=== PATIENT | male | born 1945 | race Caucasian/White ===

== ENCOUNTER → 2024-03-20 13:42 | Observation (INO) ==
[2024-03-19 11:07] LABS: Basophils #(Absolute) Auto 0.1 (0.0-0.1); Basophils%(Percent) Auto 0.4 (0.0-1.3); Eosinophils#(Absolute)Auto 0.1 (0.0-0.3); Eosinophils%(Percent) Auto 0.7 % (0.0-4.0); Granulocytes % - Auto 78.1 % (49.1-73.1); Granulocytes#(Absolute)- Auto 11.2 (2.0-6.2); Hematocrit 50.7 % (41.3-50.1); Mean Corpuscular Volume 88.8 fl (81.9-96.5); Monocytes #(Absolute)- Auto 1.4 (0.2-0.8); Monocytes %(Percent)- Auto 9.5 % (4.5-10.7); Platelet Count 289 K/uL (142-355); White Blood Count 14.3 K/uL (3.7-9.6)
[2024-03-19 11:17] LABS: Potassium 5.4 mmol/L (3.6-5.2)
[2024-03-19] MEDS: 0.9 % SODIUM CHLORIDE 500 ML IV ONE (14:30)
[2024-03-19 14:47] LABS: Urine Appearance HAZY (CLEAR); Urine Blood NEGATIVE (NEG - TRACE); Urine Color YELLOW (STRAW/YELL.); Urine Urobilinogen Normal (NORMAL)
[2024-03-19] MEDS: ALBUTEROL SULFATE 2.5 MG/3 ML VIAL.NEB INH SCH (15:40)
[2024-03-19] MEDS: 0.9 % SODIUM CHLORIDE 1000 ML 1,000 ML IV SCH (16:30)
[2024-03-19] MEDS: ATORVASTATIN CALCIUM 40 MG TABLET PO SCH (16:54)
[2024-03-19] MEDS: CLOPIDOGREL BISULFATE 75 MG TABLET PO SCH (16:54)
[2024-03-19] MEDS: WARFARIN SODIUM 1 MG TABLET PO SCH (16:55)
[2024-03-19] MEDS: GABAPENTIN 600 MG PO SCH (16:55)
[2024-03-19] MEDS: METOPROLOL SUCCINATE 25 MG TAB.ER.24H PO SCH (16:55)
[2024-03-19] MEDS: PANTOPRAZOLE SODIUM 40 MG TABLET.DR PO SCH (21:41)
[2024-03-19] MEDS: DOCUSATE SODIUM 100 MG CAPSULE PO SCH (21:41)
[2024-03-19] MEDS: SODIUM CHLORIDE 1,000 MG TABLET PO SCH (21:41)
[2024-03-19] MEDS: GABAPENTIN 300 MG CAPSULE PO SCH (22:31)
[2024-03-20 05:53] LABS: Basophils #(Absolute) Auto 0.1 (0.0-0.1); Basophils%(Percent) Auto 0.4 (0.0-1.3); Eosinophils#(Absolute)Auto 0.1 (0.0-0.3); Granulocytes % - Auto 74.8 % (49.1-73.1); Granulocytes#(Absolute)- Auto 9.2 (2.0-6.2); Hematocrit 45.4 % (41.3-50.1); Mean Corpuscular Volume 89.8 fl (81.9-96.5); Monocytes #(Absolute)- Auto 1.1 (0.2-0.8); Monocytes %(Percent)- Auto 9.3 % (4.5-10.7); Platelet Count 247 K/uL (142-355); White Blood Count 12.3 K/uL (3.7-9.6)
[2024-03-20 06:13] LABS: Potassium 4.8 mmol/L (3.6-5.2)
[2024-03-20 06:16] LABS: INR 1.46
[2024-03-20] MEDS: WARFARIN SODIUM 5 MG TABLET PO ONE (09:52)
[2024-03-20 12:30] VITALS: BP 122/63; PULSE 75; RESP 18; TEMP 98.3
[~2024-03-20 13:42] MED LIST: FLUTICASONE 50 MCG NASAL 1 SPRAY.SUSP NAS PRN; MELATONIN 5 MG TABLET PO PRN; METAXALONE 800 MG TABLET PO PRN; NITROGLYCERIN 0.4 MG TAB.SUBL SL PRN; TRAMADOL HCL 50 MG TABLET PO PRN
--- NOTE | 2024-03-20 15:55 | Short Stay Summary ---
H&P: HPI History of Present Illness Chief complaint: Dehydration, Diarrhea, Afib Narrative: Patient is a 78 year old male direct admitted to med/surg by BARBARA Quintana for diarrhea, dehydration, hyponatremia, and history of cardiac disease. Patient has not experienced any loose bowel movements since hospital admission. He states he is feeling much better today. Review of Systems Constitutional Reports: fatigue; Denies: fever, chills or change in weight Eyes Denies: change in vision, blurry vision, blind spots or light sensitivity Ears, nose, mouth, and throat Denies: throat pain, neck pain, throat swelling or swelling of lips/tongue Cardiovascular Denies: chest pain, palpitations, edema or swelling of feet/ankles Respiratory Denies: shortness of breath, cough or wheezing Gastrointestinal Reports: diarrhea; Denies: abdominal pain, nausea, vomiting, constipation or bloating Genitourinary Denies: painful urination, urinary frequency or urinary urgency Musculoskeletal Denies: back pain, neck pain or extremity pain Integumentary/Breast Denies: rash, itching or redness Neurological Denies: headache, numbness in extremities or weakness in extremities Psychiatric Denies: anxiety, mood swings or panic attacks Endocrine Denies: excessive urination, excessive thirst or fatigue Hematologic/Lymphatic Denies: easy bruising or easy bleeding Allergic/Immunologic Denies: hives, throat swelling or tongue swelling [facility] Medical History (Updated 03/20/24 @ 15:37 by LARRY Andino) Paroxysmal atrial fibrillation Ventricular arrhythmia Hypoalbuminemia Diabetes type 2 with atherosclerosis of arteries of extremities Hypoxia Arthritis Chronic pain Congestive heart failure with left ventricular diastolic dysfunction, NYHA class 4 Skin cancer Prostate cancer Pacemaker Neuropathy Hyponatremia Hypokalemia Hard of hearing Hypertension HLD (hyperlipidemia) Myocardial infarct COPD (chronic obstructive pulmonary disease) Surgical History History of prostate surgery Hx of appendectomy History of back surgery History of heart artery stent Social History Smoking status: never smoker What is your current living situation: I presently have a place to live Problems where you live: no known problems Highest level of school completed/degree received: high school Meds Home Medications and Allergies Home Medications Medication Instructions Recorded Confirmed Type atorvastatin 40 mg tablet 40 mg PO DAILY 02/08/24 03/19/24 History clopidogrel 75 mg tablet 75 mg PO DAILY 02/08/24 03/19/24 History fluticasone propionate 50 1 spray intranasal .PRN 02/08/24 03/19/24 History mcg/actuation nasal spray,suspension furosemide 20 mg tablet 20 mg PO DAILY 02/08/24 03/19/24 History gabapentin 600 mg tablet See Rx Instructions PO BID 02/08/24 03/20/24 History lisinopril 10 mg tablet 10 mg PO DAILY 02/08/24 03/19/24 History metoprolol succinate 25 mg 25 mg PO DAILY 02/08/24 03/19/24 History tablet,extended release 24 hr spironolactone 25 mg tablet 25 mg PO DAILY 02/08/24 03/20/24 History warfarin 3 mg tablet 3 mg PO DAILY 02/08/24 03/19/24 History budesonide-formoterol HFA 160 2 puff inhalation Q12H copd #10.2 02/10/24 03/19/24 Rx mcg-4.5 mcg/actuation aerosol grams inhaler (Symbicort) hydrocodone 10 mg-chlorpheniramine 5 ml PO BID 03/06/24 03/19/24 History 8 mg/5 mL oral susp extend.rel 12hr cholecalciferol (vitamin D3) 125 125 mcg PO DAILY 03/19/24 03/19/24 History mcg (5,000 unit) tablet (Vitamin D3) docusate sodium 100 mg capsule 100 mg PO BID 03/19/24 03/19/24 History (Colace) hydrocodone 5 mg-acetaminophen 325 1 tab PO BID PRN pain 03/19/24 03/19/24 History mg tablet melatonin 10 mg capsule 10 mg PO BEDTIME PRN sleep 03/19/24 03/19/24 History metaxalone 800 mg tablet 800 mg PO TID PRN muscle pain 03/19/24 03/19/24 History nitroglycerin 0.4 mg sublingual 0.4 mg sublingual Q5M PRN chest 03/19/24 03/19/24 History tablet pain tramadol 50 mg tablet 50 mg PO BID PRN pain 03/19/24 03/19/24 History vitamins A,C,M-npsv-gxtqil 2,148 1 tab PO BID 03/19/24 03/20/24 History mcg-113 mg-45 mg-17.4 mg tablet cephalexin 500 mg capsule 500 mg PO Q8H 03/20/24 03/20/24 History cyanocobalamin (vitamin B-12) 1,000 mcg IM QWEEK 03/20/24 03/20/24 History 1,000 mcg/mL injection solution ipratropium bromide 0.02 % 1.25 ml inhalation Q8H 03/20/24 03/20/24 History solution for inhalation sodium chloride 1,000 mg soluble 1,000 mg PO Q8H hyponatremia #90 03/20/24 Rx tablet tabs warfarin 4 mg tablet 4 mg PO DAILY atrial fib #30 tabs 03/20/24 Rx Allergies Allergy/AdvReac Type Severity Reaction Status Date / Time No Known Drug Allergies Allergy Verified 03/06/24 03:47 Exam Exam: Patient observed in trevino's position upon entering room for exam. Constitutional: normal general appearance, no apparent distress, abnormal body habitus (overweight), no limitations and alert Vital Signs - 24 hr 03/19/24 15:40 03/19/24 15:40 03/19/24 17:00 Temperature 98.2 F Pulse Rate [Left B rachial] 72 Respiratory Rate 18 Blood Pressure [Le ft Arm] 162/63 Pulse Oximetry 93 L 94 L 96 Oxygen Delivery Me thod Nasal Cannula Room Air Oxygen Flow Rate 2 Fraction of Inspir ed Oxygen 03/19/24 20:00 03/19/24 20:35 03/19/24 20:35 Temperature 98.1 F Pulse Rate [Left B rachial] 53 L Respiratory Rate 19 Blood Pressure [Le ft Arm] 99/58 Pulse Oximetry 95 96 95 Oxygen Delivery Me thod Nasal Cannula Nasal Cannula Oxygen Flow Rate 2 Fraction of Inspir ed Oxygen 28 03/20/24 00:00 03/20/24 04:00 03/20/24 07:11 Temperature 98.3 F 98.1 F Pulse Rate [Left B rachial] 51 L 76 Respiratory Rate 19 19 Blood Pressure [Le ft Arm] 101/60 108/61 Pulse Oximetry 97 97 99 Oxygen Delivery Me thod Nasal Cannula Room Air Oxygen Flow Rate 2 Fraction of Inspir ed Oxygen 03/20/24 07:11 03/20/24 08:00 03/20/24 11:28 Temperature 97.5 F L Pulse Rate [Left B rachial] 74 Respiratory Rate 16 Blood Pressure [Le ft Arm] 109/67 Pulse Oximetry 99 97 98 Oxygen Delivery Me thod Nasal Cannula Room Air Oxygen Flow Rate 2 Fraction of Inspir ed Oxygen 03/20/24 12:00 Temperature 98.3 F Pulse Rate [Left B rachial] 75 Respiratory Rate 18 Blood Pressure [Le ft Arm] 122/63 Pulse Oximetry 96 Oxygen Delivery Me thod Nasal Cannula Oxygen Flow Rate 2 Fraction of Inspir ed Oxygen HENMT: normocephalic, head/scalp atraumatic, hearing grossly abnormal ([place]) and external ears normal Eyes: PERRL, EOMs intact bilaterally, conjunctivae normal, alignment normal and visual acuity normal Neck/C-Spine: trachea midline Lymph: no lymphadenopathy noted and no lymphedema noted Chest: inspection of chest normal and palpation of chest normal Respiratory: breath sounds equal bilaterally and normal respiratory effort Cardiovascular: normal heart rate noted, regular rhythm noted and no murmur Gastrointestinal: abdomen normal to inspection, abdomen soft to palpation, nontender to palpation and normoactive bowel sounds Genitourinary: bladder normal to palpation Back/Pelvis: spine normal to inspection Extremities: normal to inspection, normal to palpation, no tenderness and no deformity Neurology: community relations assistant II-XII intact, no movement abnormality noted, gait normal and speech normal Psychiatry: Mental Status Exam documented within this Exam's Psych section mental status grossly normal, oriented x3, thought process normal, cooperative, affect normal, psychomotor activity normal and memory normal Skin: skin color normal and skin turgor normal Assessment and Plan Assessment and Plan (1) Dehydration: Code(s): E86.0 - Dehydration (2) Acute diarrhea: Code(s): R19.7 - Diarrhea, unspecified (3) Hyponatremia: Code(s): E87.1 - Hypo-osmolality and hyponatremia (4) Congestive heart failure with left ventricular diastolic dysfunction, NYHA class 4: Code(s): I50.30 - Unspecified diastolic (congestive) heart failure (5) Diabetes type 2 with atherosclerosis of arteries of extremities: Code(s): E11.51 - Type 2 diabetes mellitus with diabetic peripheral angiopathy without gangrene; I70.209 - Unspecified atherosclerosis of [place] arteries of extremities, unspecified extremity (6) Hard of hearing: Code(s): H91.90 - Unspecified hearing loss, unspecified ear (7) Hypertension: Qualifiers: Hypertension type: primary hypertension Qualified Code(s): I10 - Essential (primary) hypertension Code(s): I10 - Essential (primary) hypertension Plan Insulin Regular per sliding scale SUBQ PRN Sodium Chloride 1,000 @ 125 mls/hr IV CONT Albuterol 2.5 mg INH RQ4 Atorvastatin Calcium 40 mg PO Daily Clopidogrel Bisulfate 75 mg PO Daily Fluticason Propionate 50 mcg Nasal [place] Daily PRN Gabapentin 600 mg PO TID Metoprolol Succinate 25 mg PO Daily Warfarin Sodium 3 mg PO QDC Pantoprazole Sodium 40 mg PO BID Docusate Sodium 100 mg PO BID Melatonin 10 mg PO Bedtime PRN Metaxalone 800 mg PO TID PRN Nitroglycerin 0.4 mg SL Q5M PRN Tramadol Hcl 50 mg PO BID PRN Gabapentin 600 mg PO TID Patient acute symptoms and problems resolved and returned to patients baseline. Ready for discharge home with follow up appointment with PCP on Saturday03/24/24 for a repeat INR and post hospital follow up. Results Labs Labs: CBC WBC 12.3 K/uL (3.7-9.6) H 03/20/24 05:40 RBC 5.1 M/uL (4.40-5.80) 03/20/24 05:40 Hgb 15.4 gm/dL (14.0-17.4) 03/20/24 05:40 Hct 45.4 % (41.3-50.1) 03/20/24 05:40 MCV 89.8 fl (81.9-96.5) 03/20/24 05:40 MCH 30.3 pg (27.6-33.7) 03/20/24 05:40 MCHC 33.8 g/dl (33.0-35.7) 03/20/24 05:40 RDW 15.2 % (11.0-14.8) H 03/20/24 05:40 Plt Count 247 K/uL (142-355) 03/20/24 05:40 MPV 8.2 fl (6.0-10.4) 03/20/24 05:40 Gran % 74.8 % (49.1-73.1) H 03/20/24 05:40 Lymph % (Auto) 14.5 % (17.6-39.05) L 03/20/24 05:40 Mcdonald % (Auto) 9.3 % (4.5-10.7) 03/20/24 05:40 Eos % (Auto) 1.0 % (0.0-4.0) 03/20/24 05:40 Baso % (Auto) 0.4 (0.0-1.3) 03/20/24 05:40 Lymph # (Auto) 1.8 (0.8-2.9) 03/20/24 05:40 Mcdonald # (Auto) 1.1 (0.2-0.8) H 03/20/24 05:40 Eos # (Auto) 0.1 (0.0-0.3) 03/20/24 05:40 Baso # (Auto) 0.1 (0.0-0.1) 03/20/24 05:40 Absolute Gran (auto) 9.2 (2.0-6.2) H 03/20/24 05:40 BMP Sodium 134 mmol/L (136-145) L 03/20/24 05:40 Potassium 4.8 mmol/L (3.6-5.2) 03/20/24 05:40 Chloride 100.0 mmol/L (98-107) 03/20/24 05:40 Carbon Dioxide 27 mmol/L (21-32) 03/20/24 05:40 Anion Gap 7.0 mEq/L (4-14) 03/20/24 05:40 BUN 17 mg/dL (7-18) 03/20/24 05:40 Creatinine 1.2 mg/dL (0.6-1.3) 03/20/24 05:40 Estimated GFR 61.5 (>59.9) 03/20/24 05:40 Glucose 148 mg/dL (70-110) H 03/20/24 05:40 Calcium 8.9 mg/dL (8.5-10.1) 03/20/24 05:40 Phosphorus 4.1 mg/dL (2.5-4.9) 03/20/24 05:40 Magnesium 2.1 mg/dL (1.8-2.4) 03/20/24 05:40 Total Bilirubin 1.11 mg/dL (0.0-1.0) H 03/20/24 05:40 AST 25 U/L (15-37) 03/20/24 05:40 ALT 33 U/L (30-65) 03/20/24 05:40 Alkaline Phosphatase 98 U/L (50-136) 03/20/24 05:40 Total Protein 7.1 g/dL (6.4-8.2) 03/20/24 05:40 Albumin 2.8 g/dL (3.4-5.0) L 03/20/24 05:40 Liver Function Total Bilirubin 1.11 mg/dL (0.0-1.0) H 03/20/24 05:40 AST 25 U/L (15-37) 03/20/24 05:40 ALT 33 U/L (30-65) 03/20/24 05:40 Alkaline Phosphatase 98 U/L (50-136) 03/20/24 05:40 Total Protein 7.1 g/dL (6.4-8.2) 03/20/24 05:40 Albumin 2.8 g/dL (3.4-5.0) L 03/20/24 05:40 Urine Urine Color Yellow (STRAW/YELL.) 03/19/24 14:33 Urine Appearance Hazy (CLEAR) 03/19/24 14:33 Ur Specific [place] 1.030 (1.001-1.035) 03/19/24 14:33 Urine Protein Negative (NEGATIVE) 03/19/24 14:33 Urine Glucose (UA) Normal (NORMAL) 03/19/24 14:33 Urine Ketones Negative (NEGATIVE) 03/19/24 14:33 Urine Occult Blood Negative (NEG - TRACE) 03/19/24 14:33 Urine Nitrite Negative (NEGATIVE) 03/19/24 14:33 Urine Bilirubin Negative (NEGATIVE) 03/19/24 14:33 Urine Urobilinogen Normal (NORMAL) 03/19/24 14:33 Ur Leukocyte Esterase Negative (NEGATIVE) 03/19/24 14:33 Imaging Imaging ordered: Chest x-ray Radiologist's impression: XR CHEST 2V Date of Service: 03/19/24 HISTORY: COPDCOPD; MB/STC COMPARISON: March 06, 2024 FINDINGS: The trachea is midline. The cardiac silhouette is normal in size with left-sided pacemaker in place. Mild emphysema is present. The lungs are clear without focal infiltrate or effusion. The bony thorax reveals spondylosis and mild kyphosis. IMPRESSION: No acute cardiopulmonary disease. DS: Providers Provider Date of admission: 03/19/24 09:34 Primary care physician: Evelyn Isaac DO Admitting clinician: Sarai Obrien Attending physician on admission: Evelyn Isaac Attending physician on discharge: Evelyn Isaac Discharging clinician: Evelyn Isaac Anticipated date of discharge: 03/20/24 DS: Summary Hospital Course Hospital Course: Patient is a 78 year old male direct admitted to med/surg by BARBARA Quintana for diarrhea, dehydration, hyponatremia, and history of cardiac disease. Patient has not experienced any loose bowel movements since hospital admission. He states he is feeling much better today. Patient responded to treatment plan well and had an uneventful hospital stay at this time. Acute symptoms and problems have been resolved and patient is back to his baseline. Patient is to follow up with his PCP on Saturday for a repeat INR and post hospital follow up. Status at Discharge Functional status at discharge: independent ambulation Overall status at discharge: patient is back to baseline Time Spent with Patient Time attestation: Total time spent providing and/or coordinating discharge services: Time spent: greater than 30 minutes Discharge Plan Discharge Disposition: Home, Self-Care Condition: Improved Discharge Medications: New warfarin 4 mg tablet 4 mg PO DAILY Qty: 30 0RF sodium chloride 1,000 mg tablet,soluble 1,000 mg PO Q8H Qty: 90 0RF Continued hydrocodone-chlorpheniramine 10-8 mg/5 mL suspension,extended rel 12 hr 5 ml PO BID tramadol 50 mg tablet 50 mg PO BID PRN (Reason: pain) hydrocodone-acetaminophen 5-325 mg tablet 1 tab PO BID PRN (Reason: pain) cholecalciferol (vitamin D3) [Vitamin D3] 125 mcg (5,000 unit) tablet 125 mcg PO DAILY docusate sodium [Colace] 100 mg capsule 100 mg PO BID vitamins A,C,K-mikn-ydzhil 2,148 mcg-113 mg-45 mg-17.4mg tablet 1 tab PO BID Rx Instructions: administer with AM and PM meals nitroglycerin 0.4 mg tablet, sublingual 0.4 mg sublingual Q5M PRN (Reason: chest pain) Rx Instructions: do not exceed 3 doses per episode melatonin 10 mg capsule 10 mg PO BEDTIME PRN (Reason: sleep) metaxalone 800 mg tablet 800 mg PO TID PRN (Reason: muscle pain) ipratropium bromide 0.02 % solution 1.25 ml inhalation Q8H cyanocobalamin (vitamin B-12) 1,000 mcg/mL solution 1,000 mcg IM QWEEK cephalexin 500 mg capsule 500 mg PO Q8H Rx Instructions: PATIENT STATES THAT HE STILL HAD 3 DAYS LEFT OF THE MEDCIATON atorvastatin 40 mg tablet 40 mg PO DAILY clopidogrel 75 mg tablet 75 mg PO DAILY fluticasone propionate 50 mcg/actuation spray,suspension 1 spray INTRANASAL .PRN furosemide 20 mg tablet 20 mg PO DAILY gabapentin 600 mg tablet See Rx Instructions PO BID Rx Instructions: 600 MG EVERY MORNING AND 1200 MG AT BEDTIME orally twice a day; lisinopril 10 mg tablet 10 mg PO DAILY metoprolol succinate 25 mg tablet extended release 24 hr 25 mg PO DAILY spironolactone 25 mg tablet 25 mg PO DAILY warfarin 3 mg tablet 3 mg PO DAILY budesonide-formoterol [Symbicort] 160-4.5 mcg/actuation HFA aerosol inhaler 2 puff inhalation Q12H Qty: 10.2 0RF Discontinued sodium chloride 1,000 mg tablet,soluble 1,000 mg PO BID Qty: 60 0RF Discharge Orders: Discharge Order (Routine); Ordered 03/20/24 Ordered By: Evelyn Isaac Activity: increase activity as tolerated Diet: advance to your usual diet Interventions: Discharge Assessment Last Done: 03/20/24 13:21 MED/SURG & ICU Observation Charge Sheet Last Done: 03/20/24 13:23 Patient Instructions: Dehydration (DC), Acute Diarrhea (ED) Activity Restrictions/Additional Instructions: send hat and stool cup and biohazard home with patient incase diarrhea recurs and bring sample back to the ER and call doctor wilian for orders and directions follow up Teusday for INR and return to the office or the ER at any time abnormal bruising or bleeding or any concerns for INR testing as needed prior to Teusday scheduled office Check Keep diet bland and if watery stools get sample and alert Dr Isaac of the recurrance BS and BP watch and can have salt in his diet and increase the salt tabs to 3 times a day from 2 times per day Forms: Portal/Health Info Access Inst Discharge Date/Time: 03/20/24 13:42
== END | disposition home or self-care (01) ==
LOC: MS
PROVIDERS: ADMIT Family Medicine; ATTEND Family Medicine